=== PATIENT | female | born 1955 ===

== ENCOUNTER 2017-12-18 14:04 | Emergency (ER) | payer MEDICAID ==
[2017-12-18 14:05] VITALS: BMI 24.1
--- NOTE | 2017-12-18 16:47 | RAD ---
HISTORY: cough COMPARISON: None available. TECHNIQUE: Chest PA and lateral FINDINGS: LUNGS: No focal consolidation. Please note that chest x-ray has limited sensitivity for the detection of pulmonary masses. PLEURA: No significant pleural effusion identified. No definite pneumothorax . CARDIOVASCULAR: Heart size appears within normal limits. OSSEOUS STRUCTURES: Mild degenerative changes of the spine. VISUALIZED UPPER ABDOMEN: Unremarkable. OTHER FINDINGS: None. IMPRESSION: No focal consolidation identified.
[2017-12-18 17:00] VITALS: RESP 18
--- NOTE | 2017-12-18 17:06 | C.PDOC ---
History Of Present Illness 62 y/o female with history of Gastritis and HLD presents to ED with complaints of headache, cough, sore throat and losing voice for 5 days. Patient reports left ear pain and states she went to see Dr. Cabrera for symptoms was given Amoxicillin and Tylenol with no improvement. Patient is able to drink fluids and admits to chills, denies n/v/d, abdominal pain or any other complaints at this time. Time Seen by Provider: 12/18/17 16:12 Chief Complaint (Nursing): Cough, Cold, Congestion History Per: Patient History/Exam Limitations: no limitations Onset/Duration Of Symptoms: Days Current Symptoms Are (Timing): Still Present Past Medical History Reviewed: Historical Data, Nursing Documentation, Vital Signs Vital Signs: Last Vital Signs Temp 97.9 F 12/18/17 16:59 Pulse 68 12/18/17 16:59 Resp 18 12/18/17 16:59 BP 145/87 12/18/17 16:59 Pulse Ox 97 12/18/17 17:23 - Medical History PMH: Anxiety, Fractures (RIGHT LOWER LEG AND ANKLE), HTN Surgical History: No Surg Hx - [facility] Procedures COLONOSCOPY (09/11/14) Family History: States: No Known Family Hx - Social History Hx Alcohol Use: No Hx Substance Use: No Review Of Systems Except As Marked, All Systems Reviewed And Found Negative. Constitutional: Positive for: Chills ENT: Positive for: Throat Pain Respiratory: Positive for: Cough Neurological: Positive for: Headache Physical Exam - Physical Exam Appears: Non-toxic, No Acute Distress Skin: Warm, Dry, No Rash Head: Tenderness (Maxillary and frontal sinus) Eye(s): bilateral: Normal Inspection Ear(s): Left: TM Dull, Other (No bulging), Right: TM Obscured By Wax Oral Mucosa: Moist Throat: Normal, No Erythema, No Exudate Neck: Normal ROM, Supple Cardiovascular: Rhythm Regular Respiratory: Decreased Breath Sounds, No Rales, No Rhonchi, No Wheezing Gastrointestinal/Abdominal: No Tenderness, No Guarding, No Rebound Neurological/Psych: Oriented x3 ED Course And Treatment O2 Sat by Pulse Oximetry: 97 (RA) Pulse Ox Interpretation: Normal Medical Decision Making Medical Decision Making: Assessment: Sinusitis Patient refused CT scan and will be discharge home Disposition Counseled Patient/Family Regarding: Studies Performed, Diagnosis, Need For Followup, Rx Given - Disposition Referrals: Zarina Cabrera MD [Staff Provider] - Disposition: HOME/ ROUTINE Disposition Time: 17:20 Condition: STABLE Additional Instructions: follow up with your doctor in 2 days call to make an appointment take medications as prescribed return to ED if symptoms worsens or progress Prescriptions: Doxycycline Monohydrate 100 mg PO BID #20 tablet Naproxen [Naprosyn] 500 mg PO BID PRN #16 tab PRN Reason: Pain, Moderate (4-7) Pseudoephedrine HCl [Sudafed] 30 mg PO TID PRN #20 tablet PRN Reason: For Secretions Instructions: Sinusitis in Adults Forms: Gen Discharge Inst Occitan, [employer] (Occitan) Print Language: CROATIAN - Clinical Impression Clinical Impression: Sinusitis - Scribe Statement The provider has reviewed the documentation as recorded by the Ngaibizabel Steele All medical record entries made by the Ngaibizabel were at my direction and personally dictated by me. I have reviewed the chart and agree that the record accurately reflects my personal performance of the history, physical exam, medical decision making, and the department course for this patient. I have also personally directed, reviewed, and agree with the discharge instructions and disposition.
--- NOTE | 2017-12-18 18:53 | CT ---
PROCEDURE: CT HEAD WITHOUT CONTRAST. HISTORY: dizziness COMPARISON: None available. TECHNIQUE: Axial computed tomography images were obtained through the head/brain without intravenous contrast. Radiation dose: Total exam DLP = 834.80 mGy-cm. This CT exam was performed using one or more of the following dose reduction techniques: Automated exposure control, adjustment of the mA and/or kV according to patient size, and/or use of iterative reconstruction technique. FINDINGS: HEMORRHAGE: No intracranial hemorrhage. BRAIN: No mass effect or edema. The irving-white matter differentiation appears intact. Please note that MRI with diffusion imaging is more sensitive in the detection of acute ischemic event. VENTRICLES: No hydrocephalus. CALVARIUM: Unremarkable. PARANASAL SINUSES: Mild mucosal thickening, bilateral maxillary sinuses. The paranasal sinuses appear otherwise clear. No air-fluid levels. MASTOID AIR CELLS: Unremarkable as visualized. No inflammatory changes. OTHER FINDINGS: None. IMPRESSION: No acute intracranial pathology identified.
[2017-12-18 19:44] VITALS: BP 145/84; PULSE 76; TEMP 98.6; O2SAT 98
== END 2017-12-18 19:42 | disposition home or self-care (01) ==
LOC: C.ER 14:04
DX: J32.9 Chronic sinusitis, unspecified (principal); I10 Essential (primary) hypertension; Z87.891 Personal history of nicotine dependence